=== PATIENT | female | born 1970 | race Caucasian/White ===

== ENCOUNTER 2024-06-09 18:02 | Emergency (ER) | payer MEDICARE ==
[2024-06-09] MEDS: Ketorolac 30 MG/ML SDV IM ONE (18:25)
== END 2024-06-09 18:52 | disposition home or self-care (01) ==
LOC: LB.ED 18:02
DX: S76.211A Strain of adductor muscle, fascia and tendon of right thigh, initial encounter (principal); S70.01XA Contusion of right hip, initial encounter; Z88.0 Allergy status to penicillin; Z88.1 Allergy status to other antibiotic agents; Z88.5 Allergy status to narcotic agent; Z88.6 Allergy status to analgesic agent; Z88.8 Allergy status to other drugs, medicaments and biological substances; W01.0XXA Fall on same level from slipping, tripping and stumbling without subsequent striking against object, initial encounter
CPT/HCPCS: 96372; 99283; J1885